=== PATIENT | female | born 1995 | race Caucasian/White ===

== ENCOUNTER 2017-05-31 11:36 | Emergency (ER) | payer SELFPAY ==
--- NOTE | 2017-05-31 14:05 | RAD ---
FRONTAL VIEW CHEST: INDICATIONS: Dyspnea. FINDINGS: There is no evidence of consolidation, effusion, or pneumothorax. The cardiac silhouette is normal i n size. IMPRESSION: No focal consolidation. POS: [id number]
== END 2017-05-31 12:45 | disposition home or self-care (01) ==
LOC: ERS 11:36
DX: J11.1 Influenza due to unidentified influenza virus with other respiratory manifestations (principal); J45.909 Unspecified asthma, uncomplicated; F17.210 Nicotine dependence, cigarettes, uncomplicated; F41.9 Anxiety disorder, unspecified
CPT/HCPCS: 71045